=== PATIENT | female | born 1990 | race Caucasian/White ===

== ENCOUNTER 2024-08-13 16:26 | Outpatient (CLI) | payer MEDICAID, SELFPAY | END 2024-08-13 16:27 | disposition home or self-care (01) | LOC: AMB 08-15 12:52 | PROVIDERS: Visit Provider Emergency Medicine Emergency Medical Services | DX: S99.911A Unspecified injury of right ankle, initial encounter (principal); W01.0XXA Fall on same level from slipping, tripping and stumbling without subsequent striking against object, initial encounter; Y93.89 Activity, other specified; Y92.830 Public park as the place of occurrence of the external cause | CPT/HCPCS: A0425; A0433 ==